=== PATIENT | male | born 1945 | race Hispanic/Latino ===

== ENCOUNTER 2022-03-12 15:31 | Emergency (ER) | payer SELFPAY ==
[~2022-03-12] VITALS: Ht 167.6 cm; Wt 70.0 kg
[2022-03-12] VITALS (15 sets, daily range): BP systolic 149–190; BP diastolic 64–110
[2022-03-12 18:02] LABS: HEMATOCRIT 42.3 % (39.0-50.0); HEMOGLOBIN 14.3 g/dl (14.0-18.0); IMMATURE GRANULOCYTES 0.2 % (0.0-5.0); MEAN CELL VOLUME 87.9 fL CALC (80.0-100.0); MEAN CORPUSCULAR HGB 29.7 pG CALC (26.0-32.0); MEAN CORPUSCULAR HGB CONC 33.8 g/dL CAL (32.0-36.0); NEUT# 11.63 thou/uL (1.82-7.42); RED BLOOD COUNT 4.81 mill/uL (4.70-6.10); RED CELL DISTRI WIDTH 13.2 % (11.5-15.5)
[2022-03-12 18:27] LABS: ALBUMIN 4.8 g/dL (3.2-5.0); ALKALINE PHOSPHATASE 138 u/l (38-126); AMYLASE 120 u/l (30-110); ANION GAP 16 (6-22 (CALC)); BILIRUBIN, TOTAL 0.4 mg/dL (0.0-1.4); BUN 17 mg/dL (8-23); BUN/CREATININE RATIO 22 (12-20 (CALC)); CARBON DIOXIDE 24 mmol/l (22-30); CHLORIDE 109 mmol/l (95-108); CREATININE 0.8 mg/dL (0.7-1.3); GFR FOR AFR.AMER. > 60 ML/MIN (>=60 (CALC)); GFR OTHER RACES > 60 ML/MIN (>=60 (CALC)); LIPASE 119 u/l (23-300); POTASSIUM 3.3 mmol/l (3.5-5.1); SGOT/AST 31 u/l (19-48); SODIUM 145 mmol/l (137-146); TOTAL PROTEIN 8.2 g/dL (6.3-8.2)
[2022-03-12 18:41] LABS: ACT PARTIAL THROMBO TIME 25.4 SECONDS (20.0-32.5); PROTHROMBIN TIME 10.3 SECONDS (9.0-12.5)
[2022-03-12 19:42] LABS: URINE BILIRUBIN - DIPSTICK NEGATIVE (NEGATIVE); URINE BLOOD DIPSTICK SMALL (NEGATIVE); URINE COLOR YELLOW; URINE GLUCOSE - DIPSTICK NEGATIVE (NEGATIVE); URINE KETONE TRACE mg/dL (NEGATIVE); URINE LEUK ESTERASE NEGATIVE (NEGATIVE); URINE PH 6.5 (4.5-8.0); URINE PROTEIN - DIPSTICK NEGATIVE (NEG-TRACE); URINE SPECIFIC GRAVITY 1.025; URINE UROBILINOGEN - DIPSTICK 0.2 E.U./dL (0.2)
[2022-03-12 19:44] LABS: URINE NITRITE - DIPSTICK NEGATIVE (Negative)
[2022-03-12 19:45] LABS: URINE RBC 0-2 RBC/hpf (0-5); URINE WBC 0-2 WBC/hpf (0-5)
[2022-03-12] MEDS ORDERED: IMODIUM2 MG PO (20:24)
[2022-03-12] MEDS ORDERED: PROMETHAZINE HY25 M1 PO (20:24)
== END 2022-03-12 21:15 | disposition home or self-care (01) | DRG 392 ==
LOC: ED 15:31
DX: R11.2 Nausea with vomiting, unspecified (principal); R19.7 Diarrhea, unspecified; Z20.822 Contact with and (suspected) exposure to COVID-19
CPT/HCPCS: Q9967